=== PATIENT | male | born 1940 | race Caucasian/White ===

== ENCOUNTER 2024-02-24 13:18 | Outpatient (CLI) | payer MEDICARE, SELFPAY ==
--- NOTE | ~2024-02-24 | PE_ITS ---
EXAMINATION: PET_PETPSMAST_PT DATE: 02/24/2024 15:55 INDICATION: Malignant neoplasm of the prostate TECHNIQUE: 5.069 mCi of Locametz Ga-68([id number]) was administered i.v. Low dose computed anastasiia ography (CT) images were acquired from the base of the brain to the base of the brain to the proximal thighs for attenuation correction and anatomic localization. Positron emission tomography (PET) imag es were acquired in the same distribution beginning 90 minutes after injection. Images including fuse d PET/CT images were reconstructed in axial, coronal, and sagittal planes. Automated exposure control technique was employed. The dose-length product was 1261.94mGy-cm. COMPARISON: None FINDINGS: Musculoskeletal: There are numerous PSMA avid lesions consistent with metastatic disease scattered throughout the axia l and appendicular skeleton including a couple lesions in the skull. For reference there is a lesion at the greater ring at the superior glenoid without radiologic correlate with maximal SUV of 90.3. Ma ny of the lesions are without definitive radiologic correlate but many particularly within the spine and pelvis demonstrate corresponding sclerosis. Head/neck: Typical pattern of symmetric physiologic increased activity in the lacrimal, parotid and submandibula r glands as well as along the mucosa of the nasal and oral cavities, the kori-, naso- and hypopharynx, the glottis and esophagus. No pathologically enlarged cervical lymphadenopathy. No suspicious foci o f increased soft tissue uptake in the visualized head or neck excluding the previously noted PSMA juliet d bone lesions which can be seen in the skull and cervical spine. Chest: Pneumatocele in the right upper lobe. Mild bibasilar atelectasis. No suspicious pulmonary nodules, pn eumonia, pulmonary edema or pleural effusion. Heart size is normal. Atherosclerotic coronary artery c alcifications. Suggestion of a atrial appendage occlusion device at the left atrial appendage. No per icardial effusion. Thoracic aorta is normal in caliber. There are scattered calcified mediastinal lym ph nodes consistent with old granulomatous disease. No pathologically enlarged or PSMA avid thoracic lymphadenopathy. No PSMA avid lesions aside from the previously noted multiple scattered bone lesions in the thoracic spine, ribs, sternum and in the visualized bones of the bilateral shoulder girdles. Abdomen/pelvis/proximal thighs: Physiologic renal accumulation and excretion of activity in the kidneys, bladder and along portions o f ureters. There photopenic defects associated with bilateral low-attenuation renal cysts the larger on the right measuring 5.6 cm. A few hepatic and splenic calcification consistent with old granulomat ous disease. Normal degree and slightly heterogenous pattern of increased uptake throughout the liver and spleen without radiologic correlate or dominant PSMA avid lesion. The gallbladder, pancreas and bilateral adrenal glands are normal. Moderate uptake scattered throughout the bowels with typical duo denal and proximal jejunal suture line likely related to prior appendectomy along the tip the cecum. There is extensive diverticulosis most prominent along the transverse, descending and sigmoid colon w ithout adjacent comparison to suggest diverticulitis. Fluid distention of the otherwise normal bladde r. Prostatomegaly measuring 5.6 x 5.1 cm. There is asymmetric increased PSMA uptake with maximal SUV of 19.2 at the left posterior aspect of the prostate extending into the base of the left seminal vesi gold consistent with primary prostate cancer and likely local invasion. There is increased PSMA activi ty associated with enlarged bilateral external and obturator chains lymphadenopathy. For reference a 3.7 x 1.5 cm left external iliac chain lymph node demonstrates maximal SUV of 16.0. The enlarged and PSMA avid lymphadenopathy extends cephalad in the retroperitoneum of t
== END 2024-02-24 13:19 | disposition home or self-care (01) ==
PROVIDERS: PCP Orthopaedic Surgery; Visit Provider Urology
DX: C61 Malignant neoplasm of prostate (principal); M89.9 Disorder of bone, unspecified; R59.0 Localized enlarged lymph nodes; K57.90 Diverticulosis of intestine, part unspecified, without perforation or abscess without bleeding
CPT/HCPCS: 78815; A9596